=== PATIENT | female | born 1975 | race Two or more races ===

== ENCOUNTER 2023-01-27 21:47 | Emergency (ER) | payer OTHER ==
[~2023-01-27] VITALS: Ht 152.4 cm; Wt 47.6 kg
== END 2023-01-28 04:57 | disposition home or self-care (01) ==
LOC: ER 21:47
DX: R10.84 Generalized abdominal pain (principal); M54.59 Other low back pain

== ENCOUNTER 2023-01-29 06:19 | Inpatient (IN) | payer OTHER ==
[~2023-01-29] VITALS: Ht 152.4 cm; Wt 47.6 kg
== END 2023-02-02 13:54 | disposition home or self-care (01) | DRG 331 ==
LOC: ER 06:19 → SURH 17:26 → SURG 17:26 → SURH 19:19 → SURG 01-30 11:11
PROVIDERS: ADMIT Internal Medicine; ATTEND Internal Medicine
PROC: 0DTF0ZZ Resection of Right Large Intestine, Open Approach (ICD-10-PCS; principal; 2023-01-29)
PROC: 0DJD0ZZ Inspection of Lower Intestinal Tract, Open Approach (ICD-10-PCS; 2023-01-29)
PROC: 0WPF0JZ Removal of Synthetic Substitute from Abdominal Wall, Open Approach (ICD-10-PCS; 2023-01-29)
PROC: BW21YZZ Computerized Tomography (CT Scan) of Abdomen and Pelvis using Other Contrast (ICD-10-PCS; 2023-01-29)
DX: K56.2 Volvulus (principal); K56.609 Unspecified intestinal obstruction, unspecified as to partial versus complete obstruction; K66.0 Peritoneal adhesions (postprocedural) (postinfection); K59.00 Constipation, unspecified